=== PATIENT | female | born 1950 | race Two or more races ===

== ENCOUNTER 2022-01-05 10:06 | Outpatient (CLI) | payer OTHER ==
[2022-01-05] MEDS ORDERED: LOSARTAN POTASS50 MG PO (10:52)
== END 2022-01-05 10:17 | disposition home or self-care (01) ==
LOC: LAB 10:06
DX: Z01.818 Encounter for other preprocedural examination (principal); D64.9 Anemia, unspecified; N39.0 Urinary tract infection, site not specified; E21.0 Primary hyperparathyroidism; D68.8 Other specified coagulation defects; U07.1 COVID-19

== ENCOUNTER 2022-01-10 05:48 | Day surgery (SDC) | payer OTHER ==
[~2022-01-10] VITALS: Ht 157.5 cm; Wt 76.2 kg
[~2022-01-10 05:48] MED LIST: LOSARTAN POTASS50 MG PO
[2022-01-10] MEDS ORDERED: PERCOCET 5-3251 EACH PO (08:57)
== END 2022-01-10 11:40 | disposition home or self-care (01) ==
LOC: CIR.AMB 05:48
PROVIDERS: ATTEND Surgery
DX: D35.1 Benign neoplasm of parathyroid gland (principal); E21.2 Other hyperparathyroidism; Z20.822 Contact with and (suspected) exposure to COVID-19; I10 Essential (primary) hypertension; E11.9 Type 2 diabetes mellitus without complications; M19.90 Unspecified osteoarthritis, unspecified site; G43.909 Migraine, unspecified, not intractable, without status migrainosus